=== PATIENT | male | born 1970 | race Caucasian/White ===

== ENCOUNTER 2023-02-08 07:24 | Day surgery (SDC) | payer OTHER ==
[2023-02-07 11:27] LABS: COVID AG,FIA SOURCE NASAL SWAB
[~2023-02-08] VITALS: Ht 170.2 cm; Wt 65.9 kg
[~2023-02-08 07:24] MED LIST: ATOR40TA28 PO; GLIM2 PO; INSLAN SQ; METF-81 PO
[2023-02-08] MEDS ORDERED: PROPOFOL 1% 20 ML VIAL IVP ONE (07:25)
[2023-02-08] MEDS ORDERED: LIDOCAINE/PF 2% 5 ML VIAL IM ONE (07:25)
[2023-02-08] MEDS ORDERED: SODIUM CHLORIDE 0.9% 1,000 ML IV ONE (08:00)
[2023-02-08 08:21] LABS: GLUCOMETER DEV NAME(LOC) SDS.; GLUCOSE,POINT OF CARE 92 MG/DL (70-110)
== END 2023-02-08 11:00 | disposition home or self-care (01) ==
LOC: SURGERY 07:24
PROVIDERS: ATTEND Internal Medicine Gastroenterology
DX: K64.0 First degree hemorrhoids (principal); I10 Essential (primary) hypertension; E11.9 Type 2 diabetes mellitus without complications; E78.5 Hyperlipidemia, unspecified; Z86.010 Personal history of colon polyps; Z20.822 Contact with and (suspected) exposure to COVID-19; Z79.899 Other long term (current) drug therapy; Z79.84 Long term (current) use of oral hypoglycemic drugs
CPT/HCPCS: 87426; 45378; 82962; C9803; J2704; J3490